=== PATIENT | male | born 1955 | race American Indian/Alaskan Native ===

== ENCOUNTER 2018-11-21 10:47 | Inpatient (IN) | payer MEDICARE ==
[2018-11-21] MEDS: NACL 0.9% 1000 ML 1,000 ML IV SCH (13:26)
[2018-11-21 14:24] LABS: Basophils % (Auto) 0.7 % (0.0-1.8); Eosinophils # (Auto) 0.1 K/mm3 (0.0-0.4); Eosinophils % (Auto) 1.2 % (0.0-4.3); Hemoglobin 15.6 gm/dl (11.8-15.2); Lymphocytes # (Auto) 2.4 K/mm3 (1.2-5.4); Lymphocytes % (Auto) 44.9 % (13.4-35.0); Mean Corpuscular HGB Conc 35 % (32-34); Mean Corpuscular Volume 96 fl (84-94); Monocytes # (Auto) 0.5 K/mm3 (0.0-0.8); Monocytes % (Auto) 8.6 % (0.0-7.3); Platelet Count 197 K/mm3 (140-440); Red Cell Distribution Width 13.2 % (13.2-15.2)
[2018-11-21 14:46] LABS: Alanine Aminotransferase 10 units/L (7-56); Albumin 3.9 g/dL (3.9-5); BUN/Creatinine Ratio 13; Blood Urea Nitrogen 10 mg/dL (9-20); Hemolysis Index 17
[2018-11-21 14:57] LABS: Chol/HDL Ratio 3.4 %
[2018-11-21] MEDS ORDERED: TYLENOL PO PRN (22:03)
[2018-11-21] MEDS ORDERED: ZOFRAN IV PRN (22:03)
[2018-11-21] MEDS ORDERED: SODIUM CHLORIDE FLUSH SYRINGE 10 ML IV PRN (22:03)
[2018-11-21] MEDS ORDERED: DILAUDID IV PRN (22:03)
[2018-11-21] MEDS ORDERED: DEMECLOCYCLINE 300 MG PO SCH (22:15)
[2018-11-21] MEDS ORDERED: TRILEPTAL PO SCH (23:00)
[2018-11-21] MEDS ORDERED: PRAVACHOL PO SCH (23:00)
[2018-11-21] MEDS ORDERED: KEPPRA PO SCH (23:00)
[2018-11-21] MEDS: BUSPAR PO SCH (23:08)
[2018-11-21] MEDS: AGGRENOX PO SCH (23:08)
[2018-11-21] MEDS: PEPCID PO SCH (23:09)
[2018-11-21] MEDS: SODIUM CHLORIDE FLUSH SYRINGE 10 ML IV SCH (23:31)
[2018-11-22] MEDS: NACL 0.9% 1000 ML 1,000 ML IV SCH (01:14)
[2018-11-22] MEDS: PERCOCET 5/325 PO PRN ×2 (03:25→19:47)
--- NOTE | 2018-11-22 06:26 | Event Note ---
Date: 11/21/18 See H/p in reports Ataxia--6 mths with frequent falls Seizure disorder Cocaine use -remote Direct admit from Dr Malik's office
[2018-11-22] MEDS ORDERED: SODIUM CHLORIDE FLUSH SYRINGE 10 ML IV PRN (06:34)
--- NOTE | 2018-11-22 06:44 | History and Physical Report ---
CHIEF COMPLAINT: Frequent falls and unsteady gait for the last 6 months. HISTORY OF PRESENT ILLNESS: A 63-year-old male with a history of seizure disorder, BPH, and questionable schizophrenia, comes in for unsteady gait for the last 6 months and frequent falls. The patient states that he is able to walk, but sometimes stumbles and falls down. It happens every couple of days. It has been more frequent recently. The patient was using cocaine until 6 months ago. Denies any cocaine use in the last 6 months. The patient is on multiple medications for seizure disorder including Keppra, Depakote, and oxcarbazepine. The patient is also on hydrocodone for chronic pain, but denies taking [place] recently. No tremors, no nasal regurgitation of fluids. No diplopia. No sensory loss. No loss of power in all 4 extremities. PAST MEDICAL HISTORY: As mentioned, seizure disorder, hyperlipidemia, BPH, questionable schizophrenia. PAST SURGICAL HISTORY: Neck surgery and shoulder surgery. PERSONAL AND SOCIAL HISTORY: He smokes about 2 cigars a day. Cocaine 6 months ago. Two to three beers every day. FAMILY HISTORY: Hypertension. REVIEW OF SYSTEMS: Significant for unsteady gait and frequent falls. No recent seizures. PHYSICAL EXAMINATION: GENERAL: Elderly male, cooperative during examination. at the bedside. VITAL SIGNS: Temperature is 97.3, pulse is 57, respirations are 24, sats are 98%, blood pressure 127/69. HEENT: Unremarkable. Pupils equal and reactive. NECK: Supple, no lymphadenopathy, no thyromegaly. LUNGS: Clear to auscultation and percussion. Good air entry. CARDIOVASCULAR: S1, S2 heard. No gallop, no murmur, no rub. Apical impulse in left fifth intercostal space and midclavicular line. ABDOMEN: Soft and benign. No hepatosplenomegaly. No guarding, no rigidity. Hernial orifices are normal. EXTREMITIES: Good pedal pulses. No pedal edema. CENTRAL NERVOUS SYSTEM: 5/5 power in all 4 extremities. Slightly unsteady gait. Reflexes are normal. Sensory system is normal. Cranial nerves are normal. SKIN: Normal. LABORATORY DATA: Significant for high MCV, MCH and MCHC. Normal hemoglobin and hematocrit. Electrolytes are normal. Triglycerides 252. ASSESSMENT AND PLAN: 1. Severe ataxia. The patient to get Neurology consult. MRI/MRA ordered. Carotid duplex scan ordered. Also, echocardiogram ordered. MCH MCV high Possible vit B12 def check levels Possible excessive seizure medication Will defer to Neurology reg optimizing Seizure meds 2. Seizure disorder. The patient on multiple medications including Keppra, Depakote, and oxcarbazepine. These medications may be the cause of his ataxia We will decrease to only Keppra and discuss with Neurology whether it is appropriate. 3. Schizophrenia. Continue Zyprexa. 4. Benign prostatic hypertrophy. Continue tamsulosin. 5. Hyperlipidemia. Continue simvastatin. 6. Generalized anxiety disorder. Continue Xanax. 7. Deep venous thrombosis prophylaxis, Lovenox 40 mg subcutaneous daily. JOB# [id number] FRANDY/SHARON MISTRY
[2018-11-22 08:17] LABS: Basophils % (Auto) 0.5 % (0.0-1.8); Eosinophils # (Auto) 0.1 K/mm3 (0.0-0.4); Eosinophils % (Auto) 1.1 % (0.0-4.3); Hematocrit 41.7 % (35.5-45.6); Hemoglobin 14.3 gm/dl (11.8-15.2); Lymphocytes # (Auto) 2.9 K/mm3 (1.2-5.4); Lymphocytes % (Auto) 47.2 % (13.4-35.0); Mean Corpuscular HGB Conc 34 % (32-34); Mean Corpuscular Volume 95 fl (84-94); Monocytes # (Auto) 0.5 K/mm3 (0.0-0.8); Monocytes % (Auto) 8.4 % (0.0-7.3); Platelet Count 182 K/mm3 (140-440); Red Blood Count 4.38 M/mm3 (3.65-5.03)
[2018-11-22 08:32] LABS: Alanine Aminotransferase 7 units/L (7-56); Albumin 3.5 g/dL (3.9-5); BUN/Creatinine Ratio 13; Blood Urea Nitrogen 10 mg/dL (9-20); Calcium 8.5 mg/dL (8.4-10.2); Hemolysis Index 9
[2018-11-22 08:36] LABS: % Iron Saturation 41.98 %
--- NOTE | 2018-11-22 09:55 | Magnetic Resonance Report ---
MRI BRAIN WITHOUT CONTRAST: 11/22/18 CLINICAL: Stroke. TECHNIQUE: Axial diffusion, T1, T2, gradient echo T2*, coronal and axial FLAIR and sagittal T1 sequences on a 1.5 Danielle magnet. FINDINGS: Global enlargement of sulci and ventricles. No restricted diffusion. Prominent bilateral parafalcine encephalomalacia, worse on the left than the right. Mild bilateral frontal lobe periventricular white matter hyperintensities on FLAIR and T2. No mass or mass effect. No hemorrhage, edema or extra-axial collection. No chronic microbleeds on the gradient echo sequence. Normal pituitary and optic chiasm. The brainstem and cerebellum are normal. Intact vascular flow voids. Normal sinuses. The orbits, and soft tissues are normal. Normal calvarium and skull base. IMPRESSION: 1. No evidence of acute/subacute infarct or hemorrhage. 2. Chronic bilateral KISHORE infarcts with resultant parafalcine frontal lobe encephalomalacia. 3. Global cortical atrophy.
--- NOTE | 2018-11-22 09:58 | Magnetic Resonance Report ---
MRA HEAD WITHOUT CONTRAST: 11/22/18 CLINICAL: Stroke. TECHNIQUE: Axial 3-D [id number] MR angiography of the [place] with review of axial source images. 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 High-grade left MCA M1 segment stenosis. However, symmetric blood flow in the anterior, middle and posterior cerebral arteries. Normal basilar and vertebral arteries. The right vertebral artery is dominant. No aneurysm. IMPRESSION: High-grade left MCA M1 segment stenosis and otherwise normal study.
[2018-11-22] MEDS ORDERED: ASPIRIN PO SCH (10:00)
[2018-11-22] MEDS ORDERED: AFLURIA QUAD 2018-2019 SYRINGE IM ONE (12:00)
[2018-11-22] MEDS: AGGRENOX PO SCH (12:13)
--- NOTE | 2018-11-22 12:18 | Consultation ---
Medications and Allergies Allergies Allergy/AdvReac Type Severity Reaction Status Date / Time No Known Allergies Allergy Verified 04/04/14 08:18 Home Medications Medication Instructions Recorded Confirmed Last Taken Type Simvastatin [Zocor TAB] 10 mg PO QHS #30 tablet NS 01/16/14 02/17/14 02/16/14 22:00 Rx OXcarbazepine [Trileptal] 300 mg PO BID #60 tablet 04/05/14 Unknown Rx busPIRone [Buspar] 15 mg PO BID #60 tablet NS 04/05/14 Unknown Rx levETIRAcetam [Keppra TAB] 1,500 mg PO BID #60 tablet 04/05/14 Unknown Rx Active Meds: Active Medications Acetaminophen (Tylenol) 650 mg PO Q4H PRN PRN Reason: Pain MILD(1-3)/Fever >100.5/MORA Aspirin (Aspirin) 325 mg PO QDAY [facility] Buspirone HCl (Buspar) 15 mg PO BID [facility] Last Admin: 11/21/18 23:08 Dose: 15 mg Documented by: Dipyridamole/Aspirin (Aggrenox) 1 cap PO BID [facility] Last Admin: 11/21/18 23:08 Dose: 1 cap Documented by: Famotidine (Pepcid) 20 mg PO BID [facility] Last Admin: 11/21/18 23:09 Dose: 20 mg Documented by: Hydromorphone HCl (Dilaudid) 0.5 mg IV Q3H PRN PRN Reason: Pain , Severe (7-10) Sodium Chloride (Nacl 0.9% 1000 Ml) 1,000 mls @ 75 mls/hr IV DIRECT [facility] Last Admin: 11/22/18 01:14 Dose: 75 mls/hr Documented by: Levetiracetam (Keppra) 1,000 mg PO BID [facility] Miscellaneous Medication (Demeclocycline) 300 mg PO BID [facility] Ondansetron HCl (Zofran) 4 mg IV Q8H PRN PRN Reason: Nausea And Vomiting Oxycodone/Acetaminophen (Percocet 5/325) 1 tab PO Q6H PRN PRN Reason: Pain, Moderate (4-6) Last Admin: 11/22/18 03:25 Dose: 1 tab Documented by: Pravastatin Sodium (Pravachol) 20 mg PO QHS [facility] Last Admin: 11/21/18 23:08 Dose: 20 mg Documented by: Sodium Chloride (Sodium Chloride Flush Syringe 10 Ml) 10 ml IV BID [facility] Last Admin: 11/21/18 23:31 Dose: Not Given Documented by: Sodium Chloride (Sodium Chloride Flush Syringe 10 Ml) 10 ml IV PRN PRN PRN Reason: LINE FLUSH Sodium Chloride (Sodium Chloride Flush Syringe 10 Ml) 10 ml IV PRN PRN PRN Reason: LINE FLUSH Physical Examination - Vital Signs Vital Signs: Vital Signs Temp Pulse Resp BP Pulse Ox 97.3 F L 57 L 24 127/69 98 11/21/18 12:02 11/21/18 12:02 11/21/18 12:02 11/21/18 12:02 11/21/18 12:02 Results - Laboratory Findings CBC and BMP: 11/22/18 07:02 11/22/18 07:02 Abnormal Lab Findings: Abnormal Labs 11/21/18 11/21/18 11/22/18 13:40 13:40 07:02 Hgb 15.6 H MCV 96 H 95 H MCH 34 H 33 H MCHC 35 H RDW 13.0 L Lymph % (Auto) 44.9 H 47.2 H [place] % (Auto) 8.6 H 8.4 H TIBC Albumin Triglycerides 252 H 11/22/18 11/22/18 07:02 07:02 Hgb MCV MCH MCHC RDW Lymph % (Auto) [place] % (Auto) TIBC 212 L Albumin 3.5 L Triglycerides Assessment and Plan Mr. San is a 63-year-old gentleman with history of fall seizure disorder hypertension hyperlipidemia who also had a stroke in the past at present with slight residual right hemiparesis was admitted into the hospital as a direct admission from the doctor's office because of episodes of falls which go to worsen last 6 months. Patient gives a history of falls for more than 5 or 6 years. He states his falls are not associated with vertigo or lightheadedness. Patient has a history of seizure and he falls with the recurrence of seizures at times and he is aware and wears of those episodes. End he describes his falls are not related to seizures or vertigo or lightheadedness. Patient stated that when he wants to walk and when he takes some steps suddenly he falls. He also complains of numbness in the feet. Workup includi ng CT scan shows old left anterior cerebral artery territory infarct. No acute changes in the CT scan of the brain. Patient has elevated MCV indicating vitamin B12 deficiency. Patient has a history of alcohol intake almost for 30 years or more and currently he drinks 2-3 beers every day. Physical examination. Gen. In acute distress. Patient is alert and appropriate and has insight into his problems and answers questions appropriately. Heart. Normal rate and rhythm. Carotids. Both palpable. Cranial nerves. All cranial nerves are within normal limit. Motor. Very mild weakness on the right upper and lower extremity were noted. Reflexes. Reflexes are slightly increased on the right upper and lower extremities as compared to the left. However patient has generalized hyporeflexia with bilateral downgoing toes. Coordination. [id number] slightly dysmetric, [id number] also dysmetric. Sensory. Patient has decreased sensation to pinprick and light touch in both feet up to about 3 inches into the legs. Proprioceptive sensation is decreased in both toes. Vibratory sensation is decreased significantly in both ankles. Gait. Patient is unable to do tandem gait, gait was wide-based. Romberg. mildly positive Impression. 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 His falls are due to peripheral neuropathy. CT scan of the brain shows no midline or paramedian atrophy indicating the effect of chronic alcohol. Recommendation. #!. Patient should be started on vitamin B12 injection thousand micrograms IM once a month, patient should also take the 100 vitamins once a day which also includes 100 mg thiamine. #2. He should avoid drinking alcohol altogether, patient was counseled by me in detail about it and patient seemed to be convinced #3. He should have physical therapy for gait training,which can be done as outpatient.
[2018-11-22] MEDS: PEPCID PO SCH (12:50)
[2018-11-22] MEDS: VITAMIN B-1 PO SCH (12:50)
[2018-11-22] MEDS: KEPPRA PO SCH (12:51)
[2018-11-22] MEDS: BUSPAR PO SCH (12:55)
--- NOTE | 2018-11-22 14:40 | Progress Note ---
Assessment and Plan Ataxic gait - likely from chronic alcohol abuse and autonomic neuropathy - Neurology consulted, MRI/MRA ordered - We'll follow PT/OT recommendation - Patient has normal vitamin B12 level, will check folate - No acute CVA on MRI. MRI showed old CVA and chronic global atrophy - possible from alcoholism Seizure disorder, continue Keppra Schizophrenia, continue Zyprexa BPH, continue tamsulosin Hyperlipidemia, continue standing Generalized anxiety disorder, continue Xanax alcohol abuse, watch for withdrawal, place on thiamin and check for folic acid level DVT prophylaxis, continue Lovenox Discharge planning : We'll follow PT recommendation, pending lab Brief history: This is a 73-year-old male with a history of seizure, BPH and questionable schizophrenia came to the ER from the PCP 's office with complaints of unsteady gait and frequent falls for the last 6 months. Hospital is physical. GENERAL: well-developed -[place] male lying on bed appeared to be in no discomfort. HEENT: Normocephalic. Atraumatic. No conjunctival congestion or icterus. Patient has moist mucous membranes. NECK: Supple. Trachea midline. CHEST/LUNGS: Clear to auscultated bilaterally, breathing nonlabored. No wheezes crackles or rhonchi. HEART/CARDIOVASCULAR: Regular in rate and rhythm. S1 and S2 positive. ABDOMEN: Abdomen is soft, nontender. Patient has normal bowel sounds. SKIN: There is no rash. Warm and dry. NEURO: No focal motor deficit. Follows command. MUSCULOSKELETAL: No joint effusion or tenderness. EXTRIMITY: No edema, no cyanosis or clubbing. PSYCH: Cooperative. Subjective Date of service: 11/22/18 Interval history: Patient seen and examined. Medical records and medication list reviewed. No acute event overnight noted by the RN. Patient denies any chest pain or difficulty breathing. Patient is tolerating diet. Discussed plan of care at bedside with patient. Objective - Constitutional Vitals: Vital Signs - 12hr 11/22/18 11/22/18 06:01 12:53 Temperature 97.7 F 97.5 F L Pulse Rate 61 57 L Respiratory 18 19 Rate Blood Pressure 135/83 158/81 O2 Sat by Pulse 96 97 Oximetry - Labs CBC & Chem 7: 11/22/18 07:02 11/22/18 07:02 Labs: Abnormal lab results 11/21/18 11/22/18 11/22/18 Range/Units 13:40 07:02 07:02 MCV 95 H (84-94) fl MCH 33 H (28-32) pg RDW 13.0 L (13.2-15.2) % Lymph % (Auto) 47.2 H (13.4-35.0) % [place] % (Auto) 8.4 H (0.0-7.3) % TIBC (250-450) mcg/dL Albumin 3.5 L (3.9-5) g/dL Triglycerides 252 H (2-149) mg/dL 11/22/18 Range/Units 07:02 MCV (84-94) fl MCH (28-32) pg RDW (13.2-15.2) % Lymph % (Auto) (13.4-35.0) % [place] % (Auto) (0.0-7.3) % TIBC 212 L (250-450) mcg/dL Albumin (3.9-5) g/dL Triglycerides (2-149) mg/dL
[2018-11-22] MEDS: VITAMIN B-12 PO SCH (15:49)
[2018-11-22 16:48] LABS: Amphetamine Screen,Urine PRESUMPTIVE NEGATIVE; Benzodiazepines Screen,Urine PRESUMPTIVE NEGATIVE; Cocaine Screen,Urine PRESUMPTIVE NEGATIVE; Methadone Screen,Urine PRESUMPTIVE NEGATIVE; Opiate Screen,Urine PRESUMPTIVE NEGATIVE
[2018-11-22 17:00] LABS: Cannabinoid Screen,Urine PRESUMPTIVE POSITIVE
[2018-11-22] MEDS ORDERED: NON-FORMULARY (Simvastatin 10 MG) PO SCH (22:00)
[2018-11-22] MEDS ORDERED: NON-FORMULARY (Levetiracetam [Keppra Tab] 1,000 MG) PO SCH (22:00)
[2018-11-22] MEDS ORDERED: PRAVACHOL PO SCH (22:00)
[2018-11-22] MEDS ORDERED: LOVENOX SUB-Q SCH (22:00)
[2018-11-23] MEDS: BUSPAR PO SCH ×2 (05:12→10:28)
[2018-11-23] MEDS: KEPPRA PO SCH ×4 (05:12→10:35)
[2018-11-23] MEDS: PEPCID PO SCH ×2 (05:13→10:27)
[2018-11-23] MEDS: SODIUM CHLORIDE FLUSH SYRINGE 10 ML IV SCH ×2 (05:13→10:29)
--- NOTE | 2018-11-23 05:47 | Vascular Lab Report ---
PROCEDURE: VL CAROTID DUPLEX BILAT TECHNIQUE: Duplex Doppler ultrasound of the common, internal and external carotid arteries and the v ertebral arteries was performed bilaterally. Simons scale imaging, velocity spectral waveform analysis, and color flow Doppler were employed. HISTORY: stroke COMPARISONS: None . Note: Measurement of carotid stenosis is based on flow velocity values that correlate with the [place] Symptomatic Carotid Endarterectomy Trial (NASCET) based stenosis criteria using the internal carotid artery diameter as the denominator for stenosis calculation. FINDINGS: RIGHT carotid artery: Velocities: ICA PSV: 100.9 cm/sec ICA End diastolic: 28.9 cm/sec CCA PSV: 99.6 cm/sec IC/CC rati o: 1.03 Plaque/color flow: Mild heterogeneous plaque without significant spectral broadening or abnormal col or flow . RIGHT vertebral artery: Antegrade systolic and diastolic flow LEFT carotid artery: Velocities: ICA PSV: 102.8 cm/sec ICA End diastolic: 23.8 cm/sec CCA PSV: 113.8 cm/sec IC/CC rat io: 0.9 Plaque/color flow: Mild heterogeneous plaque without significant spectral broadening or abnormal col or flow . LEFT vertebral artery: Antegrade systolic and diastolic flow IMPRESSION: 1. RIGHT carotid: No hemodynamically significant (less than 50 percent) internal carotid artery marisa nosis. 2. LEFT carotid: No hemodynamically significant (less than 50 percent) internal carotid artery sten osis. 3. Vertebral arteries: Bilaterally antegrade. This document is electronically signed by Sergio Mares MD., November 23 2018 05:45:19 AM ET
[2018-11-23] MEDS ORDERED: NON-FORMULARY (Simvastatin [Simvastatin] 10 MG) PO SCH (10:00)
[2018-11-23] MEDS ORDERED: FLOMAX PO SCH (10:00)
[2018-11-23] MEDS ORDERED: ASPIRIN PO SCH (10:00)
[2018-11-23] MEDS: VITAMIN B-1 PO SCH (10:27)
[2018-11-23] MEDS: VITAMIN B-12 PO SCH (10:29)
[2018-11-23 11:16] VITALS: BP 131/62
[2018-11-23] MEDS: NACL 0.9% 1000 ML 1,000 ML IV SCH (11:54)
--- NOTE | 2018-11-23 12:17 | Discharge Summary ---
Providers - Providers Date of Admission: 11/21/18 11:29 Date of discharge: 11/23/18 Attending physician: KATHI RODRIGUEZ 11/21/18 22:03 Consult to Physician [CONS] Routine Comment: Consulting Provider: ELENA ESPINAL Physician Instructions: Reason For Exam: ataxia 11/21/18 22:05 Physical Therapy Evaluation and Treat [CONS] Routine Comment: Reason For Exam: ataxia 11/22/18 06:34 Occupational Therapy Evaluate and Treat [CONS] Routine Comment: Reason For Exam: Neuro deficits Physical Therapy Evaluation and Treat [CONS] Routine Comment: Reason For Exam: Neuro deficits Primary care physician: TIMOTHY PRINGLE Hospitalization Pertinent studies: MRI/MRA brain 2d echo carotid doppler Hospital course: Brief history: This is a 73-year-old male with a history of seizure, BPH and questionable schizophrenia came to the ER from the PCP 's office with complaints of unsteady gait and frequent falls for the last 6 months. Discharge Diagnosis and management: Ataxic gait - likely from chronic alcohol abuse and autonomic neuropathy - Neurology consulted, MRI/MRA ordered - Patient has normal vitamin B12 level, - No acute CVA on MRI. MRI showed old CVA and chronic global atrophy - possible from alcoholism - evaluated by PT/OT and has no home needs - discharged home in stable condition with outpt f/u with PCP - counselled for alcohol cessation Seizure disorder, continue Keppra Schizophrenia, continue Zyprexa BPH, continue tamsulosin Hyperlipidemia, continue standing Mild to moderate Aortic stenosis: no chest pain, outpt followup Generalized anxiety disorder, continue Xanax Alcohol abuse, watched for withdrawal, placed on thiamin and folic acid, counselled for cessation - 10 minutes DVT prophylaxis, continue Lovenox Discharge planning : home Hospital is physical. GENERAL: well-developed -[place] male lying on bed appeared to be in no discomfort. HEENT: Normocephalic. Atraumatic. No conjunctival congestion or icterus. Patient has moist mucous membranes. NECK: Supple. Trachea midline. CHEST/LUNGS: Clear to auscultated bilaterally, breathing nonlabored. No wheezes crackles or rhonchi. HEART/CARDIOVASCULAR: Regular in rate and rhythm. S1 and S2 positive. ABDOMEN: Abdomen is soft, nontender. Patient has normal bowel sounds. SKIN: There is no rash. Warm and dry. NEURO: No focal motor deficit. Follows command. MUSCULOSKELETAL: No joint effusion or tenderness. EXTRIMITY: No edema, no cyanosis or clubbing. PSYCH: Cooperative. Disposition: DC-01 TO HOME OR SELFCARE Time spent for discharge: 34 minutes Core Measure Documentation - Palliative Care Palliative Care/ Comfort Measures: Not Applicable - Core Measures Any of the following diagnoses?: history only Exam - Constitutional Vitals: Temp Pulse Resp BP Pulse Ox 98.0 F 59 L 19 131/62 95 11/23/18 11:15 11/23/18 11:15 11/23/18 11:15 11/23/18 11:15 11/23/18 11:15 Plan Activity: fall precautions Weight Bearing Status: Weight Bear as Tolerated Diet: low fat, low salt Special Instructions: record daily BP diary Additional Instructions: f/u with cardiology outpt Follow up with: TIMOTHY PRINGLE MD [Primary Care Provider] - 7 Days Prescriptions: Aspirin EC 81 mg PO QDAY #30 tablet. Folic Acid 1 tab PO QDAY #30 tab Thiamine [Vitamin B-1] 100 mg PO QDAY #30 tablet Cyanocobalamin [Vitamin B-12] 100 mcg PO QDAY #30 tablet
== END 2018-11-23 14:11 | disposition home or self-care (01) | DRG 57 ==
LOC: 3A 10:47 → UNDOADMIN 10:47 → 3A 11:29
PROVIDERS: ADMIT Internal Medicine; ATTEND Internal Medicine
DX: G31.2 Degeneration of nervous system due to alcohol (principal); I69.351 Hemiplegia and hemiparesis following cerebral infarction affecting right dominant side; F10.10 Alcohol abuse, uncomplicated; R26.0 Ataxic gait; G40.909 Epilepsy, unspecified, not intractable, without status epilepticus; R26.81 Unsteadiness on feet; N40.0 Benign prostatic hyperplasia without lower urinary tract symptoms; H44.529 Atrophy of globe, unspecified eye; E78.5 Hyperlipidemia, unspecified; I35.0 Nonrheumatic aortic (valve) stenosis; F41.1 Generalized anxiety disorder; F14.90 Cocaine use, unspecified, uncomplicated; I10 Essential (primary) hypertension; E53.8 Deficiency of other specified B group vitamins; F17.210 Nicotine dependence, cigarettes, uncomplicated; F20.9 Schizophrenia, unspecified; Z79.899 Other long term (current) drug therapy
CPT/HCPCS: 36415; 70544; 70551; 80053; 80061; 80307; 82607; 82747; 83036; 83550; 84443; 85025; 90686; 93306; 93880; 99406; G0378; A9270-GY; J1650; J7030